=== PATIENT | female | born 1960 ===

== ENCOUNTER 2021-12-05 19:37 | Emergency (ER) | payer MEDICAID ==
[~2021-12-05] VITALS: Ht 165.1 cm; Wt 85.0 kg
[2021-12-05 19:56] VITALS: BP 184/99
== END 2021-12-05 22:06 | disposition left against medical advice (07) ==
LOC: ER 19:38
DX: I10 Essential (primary) hypertension (principal); Z53.21 Procedure and treatment not carried out due to patient leaving prior to being seen by health care provider
CPT/HCPCS: 82948

== ENCOUNTER 2022-01-17 10:06 | Emergency (ER) | payer MEDICAID ==
[~2022-01-17] VITALS: Ht 165.1 cm; Wt 81.8 kg
[2022-01-17 10:58] VITALS: BP 147/84
[2022-01-17] MEDS ORDERED: BENZ-38 PO (11:52)
== END 2022-01-17 12:34 | disposition home or self-care (01) ==
LOC: ER 10:07
DX: B34.9 Viral infection, unspecified (principal); Z20.822 Contact with and (suspected) exposure to COVID-19; R05.9 Cough, unspecified; R19.7 Diarrhea, unspecified; I10 Essential (primary) hypertension; E11.9 Type 2 diabetes mellitus without complications; F41.9 Anxiety disorder, unspecified; F32.A Depression, unspecified; Z56.0 Unemployment, unspecified; Z79.899 Other long term (current) drug therapy
CPT/HCPCS: 99283